=== PATIENT | male | born 1975 | race Caucasian/White ===

== ENCOUNTER 2023-05-23 13:36 | Emergency (ER) | payer OTHER ==
[2023-05-23 13:51] VITALS: BP 120/74; PULSE 96; RESP 18; TEMP 98.3; BMI 24.3
[2023-05-23 15:55] LABS: EOS % 8.4 % (0-4.5); HEMATOCRIT 38.3 % (35.4-49); HEMOGLOBIN 12.7 GM/dL (11.7-16.9); LYMPH % 17.2 % (8-40); MCH 30.7 pg (25.7-33.7); MCHC 33.1 g/dl (32.0-35.9); MEAN CELL VOLUME 92.9 fl (80-96); MEAN PLT VOLUME 7.9 fl (7.5-11.1); MONO % 12.2 % (3.8-10.2); NEUT % 61.2 % (42.8-82.8); PLATELET COUNT 247 10^3/uL (134-434); RBC 4.12 M/mm3 (4.00-5.60); RDW 13.6 % (11.9-15.9); WHITE BLOOD COUNT 9.7 K/mm3 (4.0-10.0)
[2023-05-23 15:59] LABS: INR 0.99 (0.83-1.09); PROTHROMBIN TIME (PATIENT) 11.5 SEC (9.7-13.0)
[2023-05-23 16:02] LABS: ACTIVATED PTT 30.6 SECONDS (25.2-36.5)
[2023-05-23 16:08] LABS: POTASSIUM 4.3 mmol/L (3.5-5.1)
[2023-05-23 16:10] LABS: CALCIUM 8.8 mg/dL (8.5-10.1)
[2023-05-23 16:11] LABS: ALBUMIN 3.3 g/dl (3.4-5.0); BLOOD UREA NITROGEN 10.9 mg/dL (7-18)
[2023-05-23 16:14] LABS: CREATININE 0.6 mg/dL (0.55-1.3)
[2023-05-23 16:15] LABS: BILIRUBIN,TOTAL 0.2 mg/dL (0.2-1)
[2023-05-23 16:16] LABS: TOT PROT 5.9 g/dl (6.4-8.2)
[2023-05-23 16:19] LABS: N-TERMINAL BNP 23.1 pg/ml (5-125)
== END 2023-05-23 18:33 | disposition home or self-care (01) ==
LOC: JER 13:36
DX: M79.604 Pain in right leg (principal); M79.605 Pain in left leg; R60.0 Localized edema
CPT/HCPCS: 36415; 80053; 83880; 85025; 85610; 85730; 86850; 86900; 86901; 93970-TC; 99284-25